=== PATIENT | female | born 1995 | race Caucasian/White ===

== ENCOUNTER 2018-04-14 10:20 | Emergency (ER) | payer SELFPAY ==
[~2018-04-14] VITALS: Ht 139.7 cm; Wt 50.0 kg
[2018-04-14] MEDS ORDERED: LEVO25TA7 PO (10:24)
[2018-04-14] MEDS ORDERED: IBUPROFEN 400MG TABLET PO ONE (10:45)
[2018-04-14 10:50] VITALS: BP 105/63
== END 2018-04-14 11:49 | disposition home or self-care (01) ==
LOC: ER 10:29
DX: R53.1 Weakness (principal); Q90.9 Down syndrome, unspecified; Z76.0 Encounter for issue of repeat prescription
CPT/HCPCS: 81025; 99283